=== PATIENT | male | born 1980 | race American Indian/Alaskan Native ===

== ENCOUNTER 2017-05-17 18:48 | Emergency (ER) | payer OTHER ==
--- NOTE | 2017-05-17 20:40 | XRay Report ---
FINAL REPORT EXAM: XR KNEE 1-2V LT HISTORY: pain TECHNIQUE: Two views of the left knee PRIORS: None. FINDINGS: The bones are normally aligned and mineralized. There is moderate narrowing of the medial joint with associated subchondral sclerosis of the tibial plateau. There is osteophyte formation of the lateral and patellofemoral joints. There is no evidence of acute fracture. The soft tissues are unremarkable. IMPRESSION: Tricompartmental osteoarthrosis
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
[2017-05-17] MEDS ORDERED: PERCOCET 5/325 PO ONE (23:03)
[2017-05-17] MEDS ORDERED: FLEXERIL PO ONE (23:03)
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
[2017-05-18 01:17] VITALS: BP 125/83
== END 2017-05-18 01:17 | disposition home or self-care (01) ==
LOC: ED 18:48
DX: S09.90XA Unspecified injury of head, initial encounter (principal); G44.319 Acute post-traumatic headache, not intractable; M17.32 Unilateral post-traumatic osteoarthritis, left knee; M54.2 Cervicalgia; J34.1 Cyst and mucocele of nose and nasal sinus; V43.52XA Car driver injured in collision with other type car in traffic accident, initial encounter; Y92.488 Other paved roadways as the place of occurrence of the external cause; Y93.89 Activity, other specified; Y99.9 Unspecified external cause status
CPT/HCPCS: 70450; 72125; 72128

== ENCOUNTER 2020-04-21 19:57 | Emergency (ER) | payer SELFPAY ==
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
[2020-04-22 01:07] VITALS: BP 138/80
== END 2020-04-21 23:14 | disposition home or self-care (01) ==
LOC: ED 19:57
DX: R20.2 Paresthesia of skin (principal)
CPT/HCPCS: 99282